=== PATIENT | male | born 1960 | race Caucasian/White ===

== ENCOUNTER → 2017-11-02 | Day surgery (SDC) | payer OTHER ==
[~2017-11-02] MED LIST: AMLODIPINE-BEN1 EAC1 PO; CRESTOR10 MG PO; EPHEDRINE SULFATE INJ 50 MG/10 ML SYR ONE; FENTANYL CITRATE/PF 100MCG/2 ML INJ ONE; HYOSCYAMINE SULFATE 0.5 MG/ML AMP ONE; LIDOCAINE HCL 2% LOCAL INJ 5 ML SDV VIAL INJ ONE; METOCLOPRAMIDE HCL 10MG/10ML UDC ONE; MIDAZOLAM HCL 2 MG/2 ML VIAL ONE; PHENYLEPHRINE HCL 1% 10 MG/ML VIAL ONE; PROPOFOL IV EMULSION 10 MG/ML 50 ML VIAL ONE
[2017-11-02 10:50] VITALS: BP 105/77
--- NOTE | 2017-11-02 11:05 | Operative Report ---
DATE OF PROCEDURE: November 02, 2017 REFERRING PHYSICIAN: Dr. Andree Amador. PROCEDURES PERFORMED: Esophagogastroduodenoscopy with biopsies and polypectomy and a colonoscopy with biopsies. INDICATIONS FOR ESOPHAGOGASTRODUODENOSCOPY: History of ulcerated nodular GE junction. INDICATIONS FOR COLONOSCOPY: Colorectal cancer screening, status post colon resection for cecal mass. MEDICATION: Patient was done under MAC. Please see anesthesiologist's note. PROCEDURE: Patient in left lateral decubitus position. Flexible fiberoptic Olympus gastroscope was introduced into the esophagus under direct visualization without any difficulty. There were some erosions noted in the distal esophagus. The GE junction was nodular, friable, and ulcerated, and biopsies were obtained. The scope was then advanced into the stomach traversing a small hiatal hernia. Mucosa overlying the antrum and the body revealed some patchy erythema and low-grade to moderate edema and biopsies were obtained and sent to stain for H. pylori. A minute nodule submucosal was noted in the antrum and that was removed per snare electrocautery. The pylorus was of normal contour and shape, was intubated with ease and the scope was advanced all the way to the 2nd portion of the duodenum. The scope was then withdrawn slowly and approximately 8-mm submucosal sessile lesion was noted in the proximal 2nd portion that was biopsied. The scope was then withdrawn back into the stomach and retroflexed. Mucosa overlying the fundus and cardia appeared to be within normal limits. The scope was then straightened out. The stomach was decompressed. The scope was subsequently withdrawn. Patient tolerated procedure well. IMPRESSIONS 1. Erosive esophagitis. 2. Gastroesophageal junction, nodular, ulcerated, friable, biopsied. 3. Small hiatal hernia. 4. Gastritis, biopsied. Biopsy sent to stain for Helicobacter pylori. 5. Submucosal nodule, antrum, removed per snare electrocautery. 6. Approximately 8-mm submucosal lesion in proximal 2nd portion, biopsied. PLAN: Follow up histology. Initiate Protonix 40 mg 1 p.o. q.a.m. a.c. Patient was then turned around and after adequate lubrication of the anal canal, a flexible fiberoptic Olympus colonoscope was inserted into the rectum with ease and advanced all the way to the ileocolic anastomosis. Anastomosis was intact without evidence of recurrence. The scope was then withdrawn slowly. Mucosa overlying the transverse and descending grossly appeared to be within normal limits. The mucosa overlying the sigmoid and rectum revealed some patchy areas of erythema and low-grade to moderate edema and biopsies were obtained. The scope was then retroflexed into the distal rectum. Small internal hemorrhoids were noted, none of which was actively bleeding. The scope was then straightened out. The rectosigmoid area as well as the distal rectal area were decompressed. The scope was subsequently withdrawn. Patient tolerated the procedure well. IMPRESSIONS 1. Ileocolic anastomosis, intact. 2. Proctosigmoiditis, mild, patchy. 3. Internal hemorrhoids, none actively bleeding. PLAN: Follow up histology. Initiate high-fiber, low-fat diet. Initiate a fiber supplement. Patient might benefit from a followup colonoscopy in 2 to 3 years. Job#: [id number] TA cc:ANDREE AMADOR DO
== END | disposition home or self-care (01) ==
LOC: ENDO 08:45
PROVIDERS: ATTEND Internal Medicine Gastroenterology
DX: Z12.11 Encounter for screening for malignant neoplasm of colon (principal); Z86.010 Personal history of colon polyps; K29.70 Gastritis, unspecified, without bleeding; K25.9 Gastric ulcer, unspecified as acute or chronic, without hemorrhage or perforation; K63.89 Other specified diseases of intestine; K22.10 Ulcer of esophagus without bleeding; K31.89 Other diseases of stomach and duodenum; E88.2 Lipomatosis, not elsewhere classified; K44.9 Diaphragmatic hernia without obstruction or gangrene; Z98.0 Intestinal bypass and anastomosis status; K64.8 Other hemorrhoids; I10 Essential (primary) hypertension; E78.00 Pure hypercholesterolemia, unspecified; Z88.0 Allergy status to penicillin; Z01.810 Encounter for preprocedural cardiovascular examination; Z68.30 Body mass index [BMI] 30.0-30.9, adult; Z90.49 Acquired absence of other specified parts of digestive tract
CPT/HCPCS: 43239; 43251; 45380; 93005; J1980; J2001; J2250; J2370; 45378